=== PATIENT | female | born 2000 | race American Indian/Alaskan Native ===

== ENCOUNTER 2021-09-09 13:25 | Emergency (ER) | payer SELFPAY ==
[2021-09-09] MEDS ORDERED: ACETAMINOPHEN 325 MG TAB PO ONE (14:19)
--- NOTE | 2021-09-09 14:24 | Emergency Department Report ---
ED General Adult HPI - General Chief complaint: Chest Pain Stated complaint: ` Time Seen by Provider: 09/09/21 14:08 Source: patient Mode of arrival: Ambulatory Limitations: No Limitations - History of Present Illness Initial comments: 21-year-old -Citizen Of [place] female who is 31 weeks presents to the emergency room for chest pain since yesterday. Patient states she eats has intermittent chest tightness. She stated she vomited yesterday and she seemed to have more pain. She does admit to have a history of acid reflux but has not taken any meds for it. She is 1 para 0. She denies any pelvic pain abdominal pain. She does admit to shortness of breath with exertion. She states that she has had no complications with her . States that her baby is moving constantly. Reports her due date is November 11. Onset/Timin -: days(s) Location: chest Radiation: non-radiation Severity scale (0 -10): 8 Quality: sharp Consistency: intermittent Improves with: none Worsens with: eating Associated Symptoms: nausea/vomiting (X1), shortness of breath. denies: confusion, chest pain, cough, diaphoresis, fever/chills, rash, seizure, syncope, weakness Treatments Prior to Arrival: none - Related Data Previous Rx's Medication Instructions Recorded Last Taken Type Famotidine [Pepcid] 10 mg PO BID #20 tablet 09/09/21 Unknown Rx Allergies Allergy/AdvReac Type Severity Reaction Status Date / Time No Known Allergies Allergy Unverified 09/09/21 13:27 ED Review of Systems ROS: Stated complaint: CP, 30 WEEKS PG Other details as noted in HPI Comment: All other systems reviewed and negative ED Past Medical Hx - Medications Home Medications: Home Medications Medication Instructions Recorded Confirmed Last Taken Type Famotidine [Pepcid] 10 mg PO BID #20 tablet 09/09/21 Unknown Rx ED Physical Exam - General Limitations: No Limitations General appearance: alert, in no apparent distress - Head Head exam: Present: atraumatic, normocephalic - Eye Eye exam: Present: normal appearance - ENT ENT exam: Present: mucous membranes moist - Neck Neck exam: Present: normal inspection - Respiratory Respiratory exam: Present: normal lung sounds bilaterally, chest wall tenderness (Midsternal chest tenderness). Absent: respiratory distress, wheezes - Cardiovascular Cardiovascular Exam: Present: regular rate, normal rhythm. Absent: systolic murmur, diastolic murmur, rubs, gallop - GI/Abdominal GI/Abdominal exam: Present: soft, normal bowel sounds - Extremities Exam Extremities exam: Present: normal inspection, full ROM. Absent: tenderness, pedal edema - Back Exam Back exam: Present: normal inspection, full ROM. Absent: tenderness - Neurological Exam Neurological exam: Present: alert, oriented X3, normal gait - Psychiatric Psychiatric exam: Present: normal affect, normal mood - Skin Skin exam: Present: warm, dry, intact, normal color. Absent: rash ED Course Vital Signs 09/09/21 13:27 Temperature 98.2 F Pulse Rate 98 H Respiratory 18 Rate Blood Pressure 104/68 [Right] O2 Sat by Pulse 99 Oximetry ED Medical Decision Making - Medical Decision Making 21-year-old -Citizen Of [place] female who is 31 weeks presents to the emergency room for chest pain since yesterday. Patient states she eats has intermittent chest tightness. She stated she vomited yesterday and she seemed to have more pain. She does admit to have a history of acid reflux but has not taken any meds for it. She is 1 para 0. She denies any pelvic pain abdominal pain. She does admit to shortness of breath with exertion. She states that she has had no complications with her . States that her baby is moving constantly. Reports her due date is November 11. EKG is shows no STEMI. Patient has normal vital signs blood pressure is 104/68. Patient is satting at 99% heart rate of 98. The patient is resting comfortably and feeling better, is alert and in no distress. The repeat examination is unremarkable and benign. The electrocardiogram shows no signs of acute ischemia and the history, exam, diagnostic testing and current condition do not suggest that this patient is having acute myocardial infarction, significant arrhythmia, unstable angina, esophageal perforation, pulmonary embolism, aortic dissection, pneumothorax, severe pneumonia, sepsis or other significant pathology that would warrant further testing, continued ED treatment, admission, or cardiology or other specialist consultation at this point. The vital signs have been stable. The patient's condition is stable and appropriate for discharge. The patient will pursue further outpatient evaluation with primary care physician, other designated physician or shop steward. The patient and/or caregiver have expressed a clear in thorough understanding and agrees to the follow-up as instructed. Critical care attestation.: If time is entered above; I have spent that time in minutes in the direct care of this critically ill patient, excluding procedure time. ED Disposition Clinical Impression: Nonspecific chest pain, Chest wall tenderness, Acid reflux Disposition: HOME / SELF CARE / HOMELESS Is pt being admited?: No Does the pt Need Aspirin: No Condition: Stable Instructions: Nonspecific Chest Pain, Adult, Chest Wall Pain, [id number], Heartburn, [id number] Additional Instructions: Please take medication as prescribed. You can also take Tylenol. Follow-up with your SHELTER DIRECTOR. EKG is nonactionable. Prescriptions: Famotidine [Pepcid] 10 mg PO BID #20 tablet Referrals: [facility] [Provider Group] - 3-5 Days Forms: Work/School Release Form(ED) Time of Disposition: 14:32
[2021-09-09 15:12] VITALS: BP 96/72
--- NOTE | 2021-09-13 14:08 | Electrocardiograph Report ---
[facility] Test Date: 2021-09-09 Test Time: 13:58:56 Pat Name: ESE DE LA GARZADepartment: Room: Gender: F Blending Supervisor: NELLIE : [id number] Requested By: ED DOC Order Number: [id number] Reading MD: Ying Oliver Measurements Intervals Wheeler Rate: 102 P: 70 AK: 128 QRS: 50 QRSD: 63 T: 36 QT: 334 QTc: 436 Interpretive Statements Sinus tachycardia Left atrial enlargement No previous ECG available for comparison Electronically Signed On 09-13-2021 14:07:47 EST by Ying Oliver
== END 2021-09-09 15:12 | disposition home or self-care (01) ==
LOC: ED 13:25
DX: O26.893 Other specified pregnancy related conditions, third trimester (principal); R07.89 Other chest pain; Z3A.31 31 weeks gestation of pregnancy
CPT/HCPCS: 93005; 99282